=== PATIENT | female | born 1975 | race Two or more races ===

== ENCOUNTER 2020-10-08 19:42 | Emergency (ER) | payer MEDICAID ==
[~2020-10-08] VITALS: Ht 172.7 cm; Wt 104.3 kg
[2020-10-08] MEDS ORDERED: IBUPROFEN 600 MG TAB PO ONE (22:00)
[2020-10-08 22:45] VITALS: BP 137/86
== END 2020-10-09 00:12 | disposition home or self-care (01) ==
LOC: ER 19:42
DX: M25.462 Effusion, left knee (principal)
CPT/HCPCS: 73562

== ENCOUNTER 2021-11-10 15:54 | Inpatient (IN) | payer MEDICAID ==
[~2021-11-10] VITALS: Ht 167.6 cm; Wt 111.5 kg
[2021-11-10] MEDS ORDERED: SODIUM CHLORIDE 0.9% 1,000 ML IV ONE ×3 (16:45→21:30)
[2021-11-10 17:19] LABS: Basophils # (auto) 0.1 10 ^3/uL (0-0.2); Basophils % (auto) 0.7 % (0.0-2.0); Eosinophils # (auto) 0 10 ^3/uL (0-0.8); Eosinophils % (auto) 0.5 % (0.0-7.0); Hematocrit 30.1 % (36.0-46.0); Hemoglobin 9.3 g/dL (12.2-16.2); Lymphocytes % (auto) 11.9 % (10.0-50.0); Mean Corpuscular Hemoglobin 18.7 pg (28.0-32.0); Mean Corpuscular Hgb Conc. 30.8 g/dL (32.0-36.0); Mean Corpuscular Volume 60.9 fL (80.0-100.0); Monocytes # (auto) 0.6 10 ^3/uL (0-1.3); Monocytes % (auto) 6.8 % (0.0-12.0); Neutrophils % (auto) 80.1 % (37.0-80.0); Red Blood Cells 4.95 10^6/uL (4.0-5.20); White Blood Cell 8.7 10^3/uL (4.4-10.8)
[2021-11-10 17:20] LABS: Red Cell Distribution Width 20.3 % (11.8-14.3)
[2021-11-10 17:34] LABS: Anion Gap 10 (5-15); Blood Urea Nitrogen 20 mg/dL (7-18); Calcium 8.8 mg/dL (8.5-10.1); Carbon Dioxide 21 mmol/L (21-32); Chloride 106 mmol/L (98-107); Glucose 341 mg/dL (74-106); Magnesium 2.3 mg/dL (1.6-2.6); Potassium 3.7 mmol/L (3.5-5.1); Sodium 137 mmol/L (136-145)
[2021-11-10 17:40] LABS: Lactic Acid w/Reflex 2.6 mmol/L (0.4-2.0)
[2021-11-10 17:41] LABS: Alanine Aminotransferase 34 U/L (13-56); Albumin 3.6 g/dL (3.4-5.0); Alkaline Phosphatase 91 U/L (45-117); Aspartate Aminotransferase 16 U/L (15-37); BUN/Creatinine Ratio 21.3; Bilirubin, Total 0.4 mg/dL (0.2-1.0); Blood Alcohol < 3.0 mg/dL (0-5); GFR African American 82 mL/min; GFR Non-African American 68 mL/min; Total Protein 8.2 g/dL (6.4-8.2)
[2021-11-10 19:51] LABS: Urine Bacteria NONE SEEN /hpf (None Seen); Urine Blood Negative /uL (Negative); Urine Specific Gravity 1.033 (1.001-1.035); Urine WBC 1 /hpf (0 - 5)
[2021-11-10 20:06] LABS: Alcohol, Urine < 3.0 mg/dL (0-10); Amphetamine Screen, Urine NEGATIVE (NEGATIVE); Barbiturate Scree,Urine NEGATIVE (NEGATIVE); Benzodiazephine Screen, Urine NEGATIVE (NEGATIVE); Cannabinoid Screen, Urine POSITIVE (NEGATIVE); Cocaine Screen, Urine NEGATIVE (NEGATIVE); Opiate Scree,Urine NEGATIVE (NEGATIVE); Phencyclidine Screen, Urine NEGATIVE (NEGATIVE)
[2021-11-10] MEDS ORDERED: ONDANSETRON HCL 4 MG/2 ML VIAL IV PRN (22:45)
[2021-11-10] MEDS ORDERED: NITROGLYCERIN 0.4 MG SL TAB SL PRN (22:45)
[2021-11-10] MEDS ORDERED: MORPHINE SULFATE INJ 2 MG/ml SYRG IV PRN (22:45)
[2021-11-10] MEDS ORDERED: DEXTROSE (50%) 50ML SYRG IV PRN (22:45)
[2021-11-10 22:57] LABS: Lactic Acid w/Reflex 2.3 mmol/L (0.4-2.0)
[2021-11-10] MEDS: SODIUM CHLORIDE 0.9% 4,000 ML IV SCH (23:29)
[2021-11-11] MEDS: ACETAMINOPHEN 500 MG TAB PO PRN ×3 (02:36→22:34)
[2021-11-11] MEDS ORDERED: METF-371 PO (04:44)
[2021-11-11] MEDS ORDERED: GLIP10TA9 PO (04:45)
[2021-11-11] MEDS ORDERED: LISI-285 PO (04:47)
[2021-11-11 05:12] VITALS: BP 106/53
[2021-11-11] MEDS: InsuLIN REG 1unit/0.01ml Soln (100units/ml) SC SCH ×3 (06:39→17:50)
[2021-11-11] MEDS: ACCU-CHEK COMFORT CURVE STRIP VI SCH ×4 (06:42→22:30)
[2021-11-11] MEDS ORDERED: IPRATROPIUM BROM 0.5 MG/2.5ML INH SOL NEB PRN (08:15)
[2021-11-11 08:59] VITALS: BP 128/64
[2021-11-11 11:33] VITALS: BP 128/64
[2021-11-11 13:00] VITALS: BP 126/77
[2021-11-11] MEDS: PANTOPRAZOLE 40 MG/10 ML VIAL INJ IV SCH (13:12)
[2021-11-11] MEDS: AZITHROMYCIN 500MG/ 250ML 250 ML IV SCH (13:12)
[2021-11-11] MEDS: cefTRIAXone 1GM/50ML D5W 50 ML IV SCH (13:13)
[2021-11-11] MEDS: LISINOPRIL 10 MG TAB PO SCH (13:14)
[2021-11-11 17:00] VITALS: BP 130/63
[2021-11-11 22:00] VITALS: BP 136/77
[2021-11-11] MEDS ORDERED: ATORVASTATIN 20 MG TAB PO SCH (22:00)
[2021-11-11] MEDS ORDERED: InsuLIN REG 1unit/0.01ml Soln (100units/ml) SC SCH (22:00)
[2021-11-11 22:13] LABS: Cholesterol 200 mg/dL (< 200)
[2021-11-11 22:16] LABS: HDL Cholesterol 56 mg/dL (40-59); LDL Cholesterol 135 mg/dL (< 100); Triglycerides 119 mg/dL (< 150)
[2021-11-11] MEDS: SODIUM CHLORIDE 0.9% 4,000 ML IV SCH (23:00)
[2021-11-12 05:00] VITALS: BP 141/69
[2021-11-12] MEDS: ACCU-CHEK COMFORT CURVE STRIP VI SCH ×3 (06:36→17:49)
[2021-11-12] MEDS: InsuLIN REG 1unit/0.01ml Soln (100units/ml) SC SCH ×3 (06:38→18:30)
[2021-11-12] MEDS: ACETAMINOPHEN 500 MG TAB PO PRN ×2 (06:43→14:01)
[2021-11-12 07:30] VITALS: BP 128/64
[2021-11-12 09:00] VITALS: BP 134/65
[2021-11-12] MEDS ORDERED: ASPirin-EC 81 mg tab PO SCH (10:00)
[2021-11-12] MEDS: AZITHROMYCIN 500MG/ 250ML 250 ML IV SCH (10:20)
[2021-11-12] MEDS: PANTOPRAZOLE 40 MG/10 ML VIAL INJ IV SCH (10:20)
[2021-11-12] MEDS: cefTRIAXone 1GM/50ML D5W 50 ML IV SCH (10:20)
[2021-11-12] MEDS: LISINOPRIL 10 MG TAB PO SCH (10:21)
[2021-11-12 13:00] VITALS: BP 115/73
[2021-11-12 17:00] VITALS: BP 122/46
[2021-11-12 18:52] VITALS: BP 134/65
== END 2021-11-12 19:45 | disposition home or self-care (01) | DRG 812 ==
LOC: EDUNIT# 15:54 → ER 15:54 → EDBD 15:54 → TELE 22:41 → TELE-WESTW 11-11 01:04
PROVIDERS: ADMIT Internal Medicine; ATTEND Internal Medicine
DX: T40.711A Poisoning by cannabis, accidental (unintentional), initial encounter (principal); E87.2 Acidosis; E86.0 Dehydration; E11.65 Type 2 diabetes mellitus with hyperglycemia; F12.10 Cannabis abuse, uncomplicated; R79.89 Other specified abnormal findings of blood chemistry; Z20.822 Contact with and (suspected) exposure to COVID-19; G81.94 Hemiplegia, unspecified affecting left nondominant side; E66.9 Obesity, unspecified; I10 Essential (primary) hypertension; Z79.82 Long term (current) use of aspirin; Z79.899 Other long term (current) drug therapy; Y92.89 Other specified places as the place of occurrence of the external cause; Z82.49 Family history of ischemic heart disease and other diseases of the circulatory system; Z83.3 Family history of diabetes mellitus; Z86.73 Personal history of transient ischemic attack (TIA), and cerebral infarction without residual deficits; Z71.3 Dietary counseling and surveillance; Z68.39 Body mass index [BMI] 39.0-39.9, adult
CPT/HCPCS: 36415; 70450; 70545; 70551; 71045; 72125; 80053; 80061; 80307; 80320; 81001; 82550; 82962; 83605; 83735; 84443; 84484; 84702; 85025; 93005; 93306; 93886; 96360; 96361; 96372; C9113; G0378; J0696; J1815; J2405

== ENCOUNTER 2022-09-01 14:57 | Emergency (ER) | payer MEDICAID ==
[~2022-09-01] VITALS: Ht 175.3 cm; Wt 109.5 kg
[~2022-09-01 14:57] MED LIST: GLIP10TA9 PO; LISI-285 PO; METF-371 PO
[2022-09-01 15:51] VITALS: BP 126/81
[2022-09-01] MEDS ORDERED: ONDANSETRON ODT 4 MG TAB PO ONE (16:45)
[2022-09-01] MEDS ORDERED: SUMAtriptan SUCCINATE 6 MG/0.5 ML VL SC ONE (16:45)
[2022-09-01] MEDS ORDERED: AMOX-277 PO (17:25)
[2022-09-01] MEDS ORDERED: SUMA50TA2 PO (17:25)
[2022-09-01] MEDS ORDERED: PRED20TA2 PO (17:25)
== END 2022-09-01 17:29 | disposition home or self-care (01) ==
LOC: ER 14:57
DX: J01.90 Acute sinusitis, unspecified (principal); G43.909 Migraine, unspecified, not intractable, without status migrainosus
CPT/HCPCS: 70450; 96372; 99285; J3030; Q0162

== ENCOUNTER 2023-05-02 11:01 | Emergency (ER) | payer MEDICAID ==
[~2023-05-02] VITALS: Ht 175.3 cm; Wt 105.6 kg
[~2023-05-02 11:01] MED LIST changes: +AMOX875T4 PO; +PRED20TA2 PO; +SUMA50TA2 PO
[2023-05-02 11:59] LABS: Basophils # (auto) 0 10 ^3/uL (0-0.2); Eosinophils # (auto) 0.1 10 ^3/uL (0-0.8); Hemoglobin 9.5 g/dL (12.2-16.2); Monocytes # (auto) 0.4 10 ^3/uL (0-1.3); Red Cell Distribution Width 16.6 % (11.8-14.3)
[2023-05-02 12:00] LABS: Basophils % (auto) 0.6 % (0.0-2.0); Eosinophils % (auto) 2.1 % (0.0-7.0); Hematocrit 30.7 % (36.0-46.0); Lymphocytes # (auto) 1.2 10 ^3/uL (0.4-5.4); Lymphocytes % (auto) 20.3 % (10.0-50.0); Mean Corpuscular Hemoglobin 22.8 pg (28.0-32.0); Mean Corpuscular Volume 73.7 fL (80.0-100.0); Monocytes % (auto) 6.5 % (0.0-12.0); Neutrophils # (auto) 4.2 10 ^3/uL (1.6-8.6); Neutrophils % (auto) 70.5 % (37.0-80.0); Red Blood Cells 4.16 10^6/uL (4.0-5.20); White Blood Cell 5.9 10^3/uL (4.4-10.8)
[2023-05-02 12:14] LABS: Alanine Aminotransferase 31 U/L (7-40); Albumin 4.3 g/dL (3.2-4.8); Alkaline Phosphatase 83 U/L (46-116); Anion Gap 6 (5-15); Aspartate Aminotransferase 27 U/L (13-40); BUN/Creatinine Ratio 16.4 (10.0-20.0); Blood Urea Nitrogen 11 mg/dL (9-23); Calcium 8.5 mg/dL (8.7-10.4); Carbon Dioxide 23 mmol/L (20-30); Chloride 107 mmol/L (98-107); Glucose 179 mg/dL (74-106); Potassium 3.9 mmol/L (3.5-5.1); Sodium 136 mmol/L (136-145)
[2023-05-02 12:15] LABS: Bilirubin, Total 0.5 mg/dL (0.2-1.0); Total Protein 7.5 g/dL (5.7-8.2)
[2023-05-02] MEDS ORDERED: traMADol HCL 50 MG TAB PO ONE (12:15)
[2023-05-02 15:23] LABS: Urine Bacteria NONE SEEN /hpf (None Seen); Urine Blood 3+ /uL (Negative); Urine Clarity HAZY (Clear); Urine Color PINK (Yellow); Urine Mucus FEW (None Seen); Urine Protein, UAD 1+ (Negative); Urine Specific Gravity 1.021 (1.001-1.035); Urine Urobilinogen Normal (Negative); Urine WBC 82 /hpf (0 - 5); Urine pH 5.5 (5.0-8.0)
[2023-05-02] MEDS ORDERED: CIPR-173 PO (16:13)
[2023-05-02 18:39] VITALS: BP 145/65; PULSE 85; RESP 17; TEMP 98.6; O2SAT 97
== END 2023-05-02 18:44 | disposition home or self-care (01) ==
LOC: ER 11:01
DX: N39.0 Urinary tract infection, site not specified (principal); R10.2 Pelvic and perineal pain; N93.8 Other specified abnormal uterine and vaginal bleeding; E11.9 Type 2 diabetes mellitus without complications; I10 Essential (primary) hypertension; Z98.51 Tubal ligation status; Z86.73 Personal history of transient ischemic attack (TIA), and cerebral infarction without residual deficits
CPT/HCPCS: 36415; 76830; 76856; 80053; 81001; 84702; 85025

== ENCOUNTER 2024-02-13 14:56 | Emergency (ER) | payer MEDICAID ==
[~2024-02-13] VITALS: Ht 175.3 cm; Wt 105.9 kg
[~2024-02-13 14:56] MED LIST changes: +CIPR-173 PO
[2024-02-13 15:22] LABS: Basophils # (auto) 0.1 10 ^3/uL (0-0.2); Basophils % (auto) 0.8 % (0.0-2.0); Eosinophils # (auto) 0.2 10 ^3/uL (0-0.8); Eosinophils % (auto) 2.5 % (0.0-7.0); Hematocrit 36.8 % (36.0-46.0); Lymphocytes # (auto) 1.8 10 ^3/uL (0.4-5.4); Lymphocytes % (auto) 20.9 % (10.0-50.0); Mean Corpuscular Hemoglobin 23.8 pg (28.0-32.0); Mean Corpuscular Hgb Conc. 32.6 g/dL (32.0-36.0); Monocytes # (auto) 0.6 10 ^3/uL (0-1.3); Monocytes % (auto) 7.6 % (0.0-12.0); Neutrophils # (auto) 5.8 10 ^3/uL (1.6-8.6); Neutrophils % (auto) 68.2 % (37.0-80.0); Platelet Count (auto) 334 10^3/uL (140-450); Red Blood Cells 5.03 10^6/uL (4.0-5.20); White Blood Cell 8.5 10^3/uL (4.4-10.8)
[2024-02-13 15:25] LABS: Red Cell Distribution Width 21.7 % (11.8-14.3)
[2024-02-13 15:46] LABS: Alanine Aminotransferase 38 U/L (7-40); Albumin 4.5 g/dL (3.2-4.8); Alkaline Phosphatase 106 U/L (46-116); Anion Gap 9 (5-15); Aspartate Aminotransferase 24 U/L (13-40); BUN/Creatinine Ratio 17.9 (10.0-20.0); Bilirubin, Total 0.5 mg/dL (0.2-1.0); Blood Urea Nitrogen 15 mg/dL (9-23); Calcium 9.8 mg/dL (8.7-10.4); Carbon Dioxide 23 mmol/L (20-30); Chloride 105 mmol/L (98-107); Glucose 225 mg/dL (74-106); Potassium 3.9 mmol/L (3.5-5.1); Sodium 137 mmol/L (136-145); Total Protein 7.8 g/dL (5.7-8.2)
[2024-02-13 16:01] LABS: Urine Bacteria None Seen /hpf (None Seen)
[2024-02-13 16:25] LABS: Urine Blood Negative /uL (Negative); Urine Clarity Clear (Clear); Urine Color Light-Yellow (Yellow); Urine Protein, UAD Negative (Negative); Urine Specific Gravity 1.021 (1.001-1.035); Urine Urobilinogen Normal (Negative); Urine WBC 1 /hpf (0 - 5); Urine pH 5.5 (5.0-9.0)
[2024-02-13] MEDS: ASPirin 325 MG TAB PO ONE (19:13)
[2024-02-13] MEDS: NITROGLYCERIN 0.4 MG SL TAB SL ONE (19:15)
[2024-02-13 19:16] VITALS: TEMP 98.9
[2024-02-13 21:35] VITALS: BP 147/85; PULSE 65; RESP 16; O2SAT 96
[2024-02-13] MEDS: KETOROLAC TROMETH 30 MG/ML 1ML VIAL IV ONE (21:38)
== END 2024-02-13 21:42 | disposition home or self-care (01) ==
LOC: ER 14:56
DX: R07.9 Chest pain, unspecified (principal); E11.9 Type 2 diabetes mellitus without complications
CPT/HCPCS: 36415; 71045; 80053; 81001; 84484; 85025; 85379; 93005; 96374; 99285; J1885